=== PATIENT | male | born 1950 | race Caucasian/White ===

== ENCOUNTER → 2016-12-30 | Day surgery (SDC) | payer BC ==
[2016-12-28 09:41] LABS: PROTHROMBIN TIME 10.9 SECONDS (9.0-12.4)
[2016-12-28 10:04] LABS: COL/ADP 99 SECONDS (63-105); COL/EPI 192 SECONDS (86-157)
[~2016-12-30] VITALS: Ht 190.5 cm; Wt 124.3 kg
[~2016-12-30] MED LIST: ALBUTEROL0.09 MG/A2 IH; ASMANEX TW110 MCG/AC IH; ASPIRIN81 M1 PO; ATORVASTATIN CA80 M1 PO; CYMBALTA60 MG PO; DEPO TESTOS200 MG/ML IM; DULERA 200 MCG8.8 GM INH; DULERA100; HALCION0.25 MG PO; IBU800 M1 PO; LEVAQUIN750 MG PO; LEVOTHYROXINE0.05 MG PO; NORVASC5 MG PO; OMEPRAZOLE20 MG PO; PREDNISONE10 MG PO; PREDNISONE50 MG PO; RANEXA1000 MG PO; ROBAXIN500 MG PO; SINGULAIR10 MG PO; TESSALON PERLE200 MG PO; VENTOLIN H0.09 MG/AC INH; VERAPAMIL HCL180 M2 PO; ZITHROMAX Z PA250 MG PO
--- NOTE | ~2016-12-30 | PROC NOTE ---
[place], [place] PROCEDURE NOTE NAME: [facility] #: [id number] UNIT #: [id number] ROOM: DOCTOR: GREG MORRIS MD,DASHA BIRTHDATE: [birth year] DOS: 12/30/2016 PROCEDURE: Bronchoscopy. PREOPERATIVE DIAGNOSES: The patient with cough and syncopal episode because of severe nonproductive cough. POSTOPERATIVE DIAGNOSES: Removal of multiple plugs and mucus from the endobronchial tree bilaterally, greater on the right than the left side. PROCEDURE DESCRIPTION: Informed consent obtained from the patient. The patient brought to the OR and placed in supine position. Conscious sedation administered by the Anesthesia Department. After achieving appropriate sedation, airway introduced into the mouth. Bronchoscope advanced through the airway into laryngeal area. Epiglottis and vocal cords were seen. Vocal cords were moving symmetrically with movements. Bronchoscope advanced to the vocal cord and tracheal lumen. Tracheal lumen shows moderate amount of thick mucoid secretions, suctioned out to the rose level. The patient noted with thick plugs of the mucus, which was present in the right upper, middle and the lower lobe bronchi, which were suctioned out with the help of normal saline wash. Kiepp-ag-[id number] amount of mucus plugs present in left upper, lingula, lower lobe bronchi, which were suctioned out as well. Procedure was tolerated. No endobronchial obstructive lesions noted. Postoperative findings were discussed with the patient's family members. DASHA GARZA MD CM:PROCNOTE:PROCEDURE NOTE [id number] DASHA MORRIS MD
[2016-12-31 16:12] LABS: ACID FAST SPEC PROCESSING Concentration (.)
== END | disposition home or self-care (01) ==
LOC: SDC 12-27 10:15
PROVIDERS: Internal Medicine Critical Care Medicine
DX: J40 Bronchitis, not specified as acute or chronic (principal); T17.890A Other foreign object in other parts of respiratory tract causing asphyxiation, initial encounter; I10 Essential (primary) hypertension; K21.9 Gastro-esophageal reflux disease without esophagitis; I25.2 Old myocardial infarction; J45.909 Unspecified asthma, uncomplicated; E07.9 Disorder of thyroid, unspecified; Z95.818 Presence of other cardiac implants and grafts

== ENCOUNTER → 2020-08-19 | Outpatient (CLI) | payer MEDICARE, BC | END | disposition home or self-care (01) | LOC: COVID19 00:23 | PROVIDERS: ATTEND Family Medicine | DX: U07.1 COVID-19 (principal) ==

== ENCOUNTER 2020-11-23 23:56 | Emergency (ER) | payer MEDICARE, BC ==
[~2020-11-23] VITALS: Ht 193 cm; Wt 136.1 kg
[2020-11-24 00:30] LABS: BASO % 0.4 % (0.0-1.0); EOS # 0.2 10*3/uL (0.0-0.4); EOS % 4.5 % (1.0-4.0); HEMATOCRIT 43.3 % (42.0-52.0); LYMPH # 1.6 10*3/uL (1.3-4.4); LYMPH % 35.3 % (27.0-41.0); MEAN CELL VOLUME 96.4 fl (80.0-94.0); MEAN CORPUSCULAR HGB 32.5 pg (27.0-31.0); MEAN CORPUSCULAR HGB CONC 33.7 g/dl (33.0-37.0); MEAN PLATELET VOLUME 9.8 fl (9.6-12.3); MONO # 0.6 10*3/uL (0.1-1.0); MONO % 12.5 % (3.0-9.0); NEUT # 2.2 10*3/uL (2.3-7.9); NEUT % 47.3 % (47.0-73.0); PLATELET COUNT AUTOMATED 213 10*3/uL (130-400); RED BLOOD COUNT 4.49 10*6/uL (4.50-5.90); RED CELL DISTRI WIDTH 12.9 % (0-14.5); WHITE BLOOD COUNT 4.6 10*3/uL (4.8-10.8)
[2020-11-24 00:36] LABS: ACT PARTIAL THROMBO TIME 33.4 SECONDS (20.0-32.1)
[2020-11-24 01:56] LABS: ALBUMIN 3.5 gm/dl (3.1-4.5); ALKALINE PHOSPHATASE 78 U/L (45-117); BUN 16 mg/dl (7-24); CHLORIDE 108 mmol/L (98-107); CREATININE 1.04 mg/dL (0.70-1.30); POTASSIUM 3.5 mmol/L (3.5-5.1); SGOT/AST 24 IU/L (3-35); SGPT/ALT 37 U/L (12-78); SODIUM 140 mmol/L (136-145); TOTAL PROTEIN 6.9 gm/dL (6.4-8.2)
[2020-11-24 01:57] LABS: TROPONIN I < 0.015 ng/ml (<0.045)
[2020-11-24] MEDS ORDERED: TESSALON PERLE100 M1 PO (06:45)
== END 2020-11-24 06:58 | disposition home or self-care (01) ==
LOC: ED 23:56
PROVIDERS: Physician Assistant
DX: R05 Cough (principal); R06.02 Shortness of breath; R55 Syncope and collapse; M54.2 Cervicalgia; J45.909 Unspecified asthma, uncomplicated; E78.00 Pure hypercholesterolemia, unspecified; I10 Essential (primary) hypertension; K21.9 Gastro-esophageal reflux disease without esophagitis; I25.2 Old myocardial infarction; E07.89 Other specified disorders of thyroid; Z88.1 Allergy status to other antibiotic agents; Z79.899 Other long term (current) drug therapy; Z79.82 Long term (current) use of aspirin

== ENCOUNTER 2022-11-27 18:27 | Emergency (ER) | payer MEDICARE, BC ==
[~2022-11-27] VITALS: Ht 193 cm; Wt 139.3 kg
[~2022-11-27 18:27] MED LIST changes: +TESSALON PERLE100 M1 PO
[2022-11-27 19:24] LABS: BASO % 0.5 % (0.0-1.0); EOS # 0.3 10*3/uL (0.0-0.4); EOS % 4.9 % (1.0-4.0); HEMATOCRIT 39.1 % (42.0-52.0); LYMPH % 17.1 % (27.0-41.0); MEAN CELL VOLUME 95.8 fl (80.0-94.0); MEAN CORPUSCULAR HGB 33.1 pg (27.0-31.0); MEAN CORPUSCULAR HGB CONC 34.5 g/dl (33.0-37.0); MEAN PLATELET VOLUME 10.2 fl (9.6-12.3); MONO # 0.7 10*3/uL (0.1-1.0); MONO % 11.4 % (3.0-9.0); NEUT # 3.9 10*3/uL (2.3-7.9); NEUT % 65.9 % (47.0-73.0); PLATELET COUNT AUTOMATED 172 10*3/uL (130-400); RED BLOOD COUNT 4.08 10*6/uL (4.50-5.90); RED CELL DISTRI WIDTH 12.3 % (0-14.5)
[2022-11-27 19:41] LABS: ALKALINE PHOSPHATASE 80 U/L (46-116); BUN 14 mg/dl (9-23); CHLORIDE 103 mmol/L (98-107); POTASSIUM 4.1 mmol/L (3.4-5.1); SGPT/ALT 30 U/L (10-49); TOTAL PROTEIN 6.7 gm/dL (6.0-8.0)
[2022-11-27] MEDS ORDERED: BENZONATATE100 M1 PO (20:14)
[2022-11-27] MEDS ORDERED: AMOXICILLIN500 M2 PO (20:14)
== END 2022-11-27 20:18 | disposition home or self-care (01) ==
LOC: ED 18:27
PROVIDERS: Physician Assistant
DX: J45.909 Unspecified asthma, uncomplicated (principal); J32.9 Chronic sinusitis, unspecified; Z88.8 Allergy status to other drugs, medicaments and biological substances; Z98.890 Other specified postprocedural states; Z20.822 Contact with and (suspected) exposure to COVID-19

== ENCOUNTER → 2023-03-09 | Outpatient (CLI) | payer MEDICARE, BC ==
[~2023-03-09] MED LIST changes: +AMOXICILLIN500 M2 PO; +BENZONATATE100 M1 PO
== END | disposition home or self-care (01) ==
LOC: D 08:54
DX: E66.9 Obesity, unspecified (principal); Z68.30 Body mass index [BMI] 30.0-30.9, adult

== ENCOUNTER → 2023-12-30 | Outpatient (CLI) | payer MEDICARE, BC | END | disposition home or self-care (01) | LOC: RAD 11:06 | PROVIDERS: ATTEND Chiropractor | DX: M16.12 Unilateral primary osteoarthritis, left hip (principal); I87.8 Other specified disorders of veins; M25.852 Other specified joint disorders, left hip; M25.552 Pain in left hip ==